=== PATIENT | female | born 1945 | race African-American/Black ===

== ENCOUNTER → 2017-07-13 10:28 | Outpatient (CLI) | payer MEDICARE, BC ==
[2011-09-20 07:08] VITALS: BMI 39.5
[2017-07-13 11:32] LABS: BASOPHILS 0.5 % (0-2); HEMATOCRIT 33.7 % (36.0-48.0); HEMOGLOBIN 10.3 g/dL (12-16); LYMPHOCYTES 38.6 % (15-50); MCH 28.2 pg (26.0-34.0); MCHC 30.6 g/dL (31.0-37.0); MCV 92.3 fL (80.0-100.0); MEAN PLATELET VOLUME 9.7 fL (7.4-10.4); MONOCYTES 9.2 % (2-11); NEUTROPHILS 48.7 % (40-80); PLATELET COUNT 236 10x3/uL (130-400); RBC 3.65 10x6/uL (4.00-5.40); RDW 15.5 % (11.5-14.5); WBC 4.4 10x3/uL (4.8-10.8)
[2017-07-13 12:06] LABS: ALBUMIN 3.3 g/dL (3.4-5.0); ALKALINE PHOSPHATASE 73 U/L (46-116); ALT (SGPT) 25 U/L (10-68); BILIRUBIN - TOTAL 0.36 mg/dL (0.2-1.3); CALC OSMOLALITY 278 mosm/kg (275-300); CALCIUM 9.1 mg/dL (8.5-10.1); CHLORIDE - SERUM 106 mmol/L (98-107); CREATININE - SERUM 0.6 mg/dL (0.6-1.3); GLUCOSE 78 mg/dL (74-106); PROTEIN - SERUM 6.7 g/dL (6.4-8.2); SODIUM 140 mmol/L (136-145); UREA NITROGEN 16 mg/dL (7-18); eGFR NON AFRICAN AMERICAN > 90 mL/min (90-120)
== END | disposition home or self-care (01) ==
LOC: D.LAB 10:28
PROVIDERS: Internal Medicine Gastroenterology
DX: K52.9 Noninfective gastroenteritis and colitis, unspecified (principal)

== ENCOUNTER → 2017-08-16 10:57 | Outpatient (CLI) | payer MEDICARE, BC ==
[2011-09-20 07:08] VITALS: BMI 39.5
[2017-08-16 11:33] LABS: BASOPHILS 0.4 % (0-2); HEMATOCRIT 33.2 % (36.0-48.0); HEMOGLOBIN 10.4 g/dL (12-16); IMMATURE GRANULOCYTES 0.4 % (0-5); LYMPHOCYTES 26.9 % (15-50); MCH 29.6 pg (26.0-34.0); MCHC 31.3 g/dL (31.0-37.0); MCV 94.6 fL (80.0-100.0); MEAN PLATELET VOLUME 9.3 fL (7.4-10.4); MONOCYTES 13.5 % (2-11); NEUTROPHILS 53.8 % (40-80); PLATELET COUNT 255 10x3/uL (130-400); RBC 3.51 10x6/uL (4.00-5.40); RDW 15.2 % (11.5-14.5); WBC 4.8 10x3/uL (4.8-10.8)
[2017-08-16 12:42] LABS: ERYTHROCYTE SEDIMENTATION RATE 31 mm/hr (0-30)
== END | disposition home or self-care (01) ==
LOC: D.LAB 10:00
PROVIDERS: Internal Medicine Gastroenterology
DX: K62.5 Hemorrhage of anus and rectum (principal)

== ENCOUNTER 2018-07-21 04:44 | Inpatient (IN) | payer MEDICARE, BC ==
[~2018-07-21] VITALS: Ht 162.6 cm; Wt 116.8 kg
[2018-07-21] MEDS ORDERED: BAYER CHEWABLE81 MG PO (04:50)
[2018-07-21] MEDS ORDERED: PRAVACHOL40 MG PO (04:51)
[2018-07-21] MEDS ORDERED: METHOTREXATE2.5 MG (04:51)
[2018-07-21] MEDS ORDERED: AZULFIDINE500 MG PO (04:51)
[2018-07-21] MEDS ORDERED: ZIAC 10-6.25 MG1 TAB PO (04:51)
[2018-07-21] MEDS ORDERED: ZOFRAN4 MG PO (04:52)
[2018-07-21] MEDS ORDERED: FLAGYL500 MG PO (04:52)
[2018-07-21 07:23] LABS: ALBUMIN 3.2 g/dL (3.4-5.0); ANION GAP 10.5 mmol/L (8-16); BILIRUBIN - TOTAL 0.35 mg/dL (0.2-1.3); CALCIUM 8.4 mg/dL (8.5-10.1); CREATININE - SERUM 0.9 mg/dL (0.6-1.3); POTASSIUM - SERUM 3.5 mmol/L (3.5-5.1); PROTEIN - SERUM 6.8 g/dL (6.4-8.2)
[2018-07-21 07:40] LABS: BASOPHILS 0.1 % (0-2); EOSINOPHILS 0.6 % (0-7); HEMATOCRIT 35.9 % (36.0-48.0); HEMOGLOBIN 11.5 g/dL (12-16); IMMATURE GRANULOCYTES 0.1 % (0-5); LYMPHOCYTES 9.3 % (15-50); MCH 29.3 pg (26.0-34.0); MCV 91.3 fL (80.0-100.0); MEAN PLATELET VOLUME 9.8 fL (7.4-10.4); MONOCYTES 13.1 % (2-11); NEUTROPHILS 76.8 % (40-80); PLATELET COUNT 244 10x3/uL (130-400); RBC 3.93 10x6/uL (4.00-5.40); RDW 14.2 % (11.5-14.5); WBC 6.9 10x3/uL (4.8-10.8)
[2018-07-21 10:41] VITALS: BP 117/59
[2018-07-21 11:37] VITALS: BP 126/60
--- NOTE | 2018-07-21 11:54 | NUR ---
RECIEVED PT FROM ER. PT IS AWAKE AND ORIENTED X 4 VERY PLESANT UP AD XIN
[2018-07-21 15:05] VITALS: BMI 45.0
[2018-07-21 15:22] LABS: % SATURATION 8 % (15-55); IRON 21 ug/dl (35-150); TOTAL IRON BIND CAPACITY 240 ug/dl (260-445); UNSAT IRON BIND CAPACITY 219 ug/dl (150-375)
[2018-07-21 15:56] VITALS: BP 136/63
--- NOTE | 2018-07-21 16:12 | NUR ---
ASSESSMENT COMPLETE PT AAOX4 RRESP UNLABOREDSKIN W/D PT DENIES ANY NAUSEA OR DISCOMFORT AT THIS TIME WILL CONTINUE TO MONITOR
--- NOTE | 2018-07-21 18:47 | NUR ---
PT C/O BEING COLD, GIVEN EXTRA BLANKET. NO FEVER AT THIS TIME. CL IN REACH, SRX2. NO OTHER COMPLAINTS/CONCERNS AT THIS ITME.
--- NOTE | 2018-07-21 19:28 | NUR ---
PT HAS BEEN PLACED IN ISOLATION CONTACT AT THIS TIME. AWAKE AND ALERT AND DENIES NEEDS AT THIS TIME FRESH WATER RECIEVED BED IS LOW AND LOCKED AND CALL LIGHT IS IN REACH. IV PATENT AT 100CC/HR
[2018-07-21 20:00] VITALS: BP 138/48
[2018-07-22] VITALS (7 sets, daily range): BP systolic 114–152; BP diastolic 48–74; Ht 162.6 cm; Wt 116.8 kg
--- NOTE | 2018-07-22 03:30 | NUR ---
I have reviewed this patient and I concur with the Shift Assessment completed by the Licensed Practical Nurse today this shift.
[2018-07-22 04:55] LABS: BASOPHILS 0.2 % (0-2); EOSINOPHILS 3.8 % (0-7); HEMATOCRIT 33.2 % (36.0-48.0); HEMOGLOBIN 10.2 g/dL (12-16); IMMATURE GRANULOCYTES 0.4 % (0-5); LYMPHOCYTES 13.1 % (15-50); MCH 28.6 pg (26.0-34.0); MCHC 30.7 g/dL (31.0-37.0); MEAN PLATELET VOLUME 9.2 fL (7.4-10.4); MONOCYTES 17.7 % (2-11); NEUTROPHILS 64.8 % (40-80); PLATELET COUNT 207 10x3/uL (130-400); RBC 3.57 10x6/uL (4.00-5.40); RDW 14.6 % (11.5-14.5)
[2018-07-22 05:38] LABS: ANION GAP 14.7 mmol/L (8-16); CARBON DIOXIDE 22.6 mmol/L (21.0-32.0); CREATININE - SERUM 0.8 mg/dL (0.6-1.3); MAGNESIUM - SERUM 1.7 mg/dL (1.8-2.4); PHOSPHOROUS 2.2 mg/dL (2.5-4.9); POTASSIUM - SERUM 3.3 mmol/L (3.5-5.1); T4 THYROXIN - FREE 1.15 ng/dL (0.76-1.46); THYROID STIMULATING HORMONE 0.71 uIU/mL (0.36-3.74)
--- NOTE | 2018-07-22 05:58 | NUR ---
PHIOS 2.2 PHOS-NAK GIVEN PO
[2018-07-22 06:33] LABS: APPEARANCE CLEAR (CLEAR); BILIRUBIN NEGATIVE (NEGATIVE); COLOR YELLOW (YELLOW); GLUCOSE NEGATIVE (NEGATIVE); KETONE LARGE mg/dL (NEGATIVE); NITRITE NEGATIVE (NEGATIVE); PROTEIN TRACE mg/dL (NEGATIVE); UROBILINOGEN NORMAL (NORMAL)
[2018-07-22 06:34] LABS: BACTERIA MODERATE /hpf (NONE SEEN); MUCUS >1+ /lpf (NONE SEEN); WHITE CELLS - URINE OCC /hpf (0-5)
--- NOTE | 2018-07-22 07:20 | NUR ---
REPORT RECIEVED AND MORNING ROUNDING COMPLETE. PT LAYING IN BED AWAKE, PT HAS A LEFT HAND PIV, RUNNING NS @ 100ML/HR. PT IS ON ISOLATION FOR C-DIFF. PT HAS NO COMPLAINT OF N/V AT THIS TIME. PT ASKED ABOUT HOME MEDICATIONS, WILL FOLLOW UP WITH THAT. PT A&OX4 PT STATES NO NEEDS AT THIS TIME CALL LIGHT WITHIN REACH. BED IN LOWEST POSITION.
--- NOTE | 2018-07-22 13:40 | NUR ---
I have reviewed this patient and I concur with the Shift Assessment completed by the Licensed Practical Nurse today this shift.
--- NOTE | 2018-07-22 19:26 | NUR ---
PT IN BED. DENIES NEEDS AT THIS TIME.
--- NOTE | 2018-07-23 02:02 | NUR ---
I have reviewed this patient and I concur with the Shift Assessment completed by the Licensed Practical Nurse today this shift.
[2018-07-23 03:55] VITALS: BP 170/80
[2018-07-23 04:51] LABS: BASOPHILS 0.2 % (0-2); EOSINOPHILS 5.9 % (0-7); HEMATOCRIT 32.1 % (36.0-48.0); HEMOGLOBIN 10.1 g/dL (12-16); IMMATURE GRANULOCYTES 0.5 % (0-5); LYMPHOCYTES 20.3 % (15-50); MCH 29.1 pg (26.0-34.0); MCHC 31.5 g/dL (31.0-37.0); MCV 92.5 fL (80.0-100.0); MEAN PLATELET VOLUME 9.5 fL (7.4-10.4); MONOCYTES 14.6 % (2-11); NEUTROPHILS 58.5 % (40-80); PLATELET COUNT 215 10x3/uL (130-400); RBC 3.47 10x6/uL (4.00-5.40); RDW 14.6 % (11.5-14.5); WBC 4.4 10x3/uL (4.8-10.8)
[2018-07-23 05:03] LABS: CALC OSMOLALITY 279 mosm/kg (275-300); CARBON DIOXIDE 21.6 mmol/L (21.0-32.0); CHLORIDE - SERUM 110 mmol/L (98-107); CREATININE - SERUM 0.7 mg/dL (0.6-1.3); GLUCOSE 78 mg/dL (74-106); MAGNESIUM - SERUM 2.1 mg/dL (1.8-2.4); PHOSPHOROUS 2.1 mg/dL (2.5-4.9); POTASSIUM - SERUM 3.6 mmol/L (3.5-5.1); SODIUM 142 mmol/L (136-145); UREA NITROGEN 6 mg/dL (7-18); eGFR NON AFRICAN AMERICAN 87 mL/min (90-120)
--- NOTE | 2018-07-23 07:33 | NUR ---
PT AWAKE AND ORIENTED, ON PHONE WITH FRIENDS/FAMILY. NO COMPLAINTS OR CONCERNS VOICED AT THIS TIME. CL IN REACH, SRX2.
[2018-07-23 08:10] VITALS: BP 140/76
--- NOTE | 2018-07-23 12:49 | NUR ---
I have reviewed this patient and I concur with the Shift Assessment completed by the Licensed Practical Nurse today this shift.
[2018-07-23 16:20] VITALS: BP 136/77
--- NOTE | 2018-07-23 20:00 | NUR ---
ROUNDS COMPLETED. VSS, AAOX3. NO S/S OF RR DISTRESS. PT LAYING IN BED WITH EYES OPEN. STATES SHE HAS HAD 6 EPISODES OF DIARRHEA TODAY. PT ON CONTACT PRECAUTION. DENIES ANY FURTHER NEEDS AT THIS TIME. WILL CPOC.
[2018-07-23 20:37] VITALS: BP 126/59
[2018-07-24 00:18] VITALS: BP 128/59
--- NOTE | 2018-07-24 03:15 | NUR ---
PT STATES SHE ACCIDENTALLY PULL OUT HER PIV WHILE SHE WAS SLEEPING. ASSESSED THE SITE, NO S/S OF BLEEDING NOTED. APPLIED 2X2 GAUZE AND TAPED. RESITED A NEW PIV ON L.WRIST 22G X1 STICK. PT TOLERATE WELL. PT CURRENTLY LAYING IN BED. DENIES ANY FURTHER NEEDS AT THIS TIME. WILL CPOC. CL IN REACH, BED IN LOW.
[2018-07-24 06:11] VITALS: BP 140/79
[2018-07-24 07:23] LABS: CALC OSMOLALITY 275 mosm/kg (275-300); CALCIUM 8.5 mg/dL (8.5-10.1); CARBON DIOXIDE 22.7 mmol/L (21.0-32.0); CHLORIDE - SERUM 107 mmol/L (98-107); CREATININE - SERUM 0.7 mg/dL (0.6-1.3); GLUCOSE 94 mg/dL (74-106); POTASSIUM - SERUM 3.5 mmol/L (3.5-5.1); SODIUM 140 mmol/L (136-145); eGFR NON AFRICAN AMERICAN 87 mL/min (90-120)
[2018-07-24 07:24] LABS: UREA NITROGEN 4 mg/dL (7-18)
[2018-07-24 07:28] LABS: HEMATOCRIT 36.6 % (36.0-48.0); HEMOGLOBIN 11.6 g/dL (12-16); MCHC 31.7 g/dL (31.0-37.0); MCV 91.5 fL (80.0-100.0); MEAN PLATELET VOLUME 9.6 fL (7.4-10.4); PLATELET COUNT 254 10x3/uL (130-400); RDW 14.4 % (11.5-14.5)
[2018-07-24 07:35] LABS: WBC 6.2 10x3/uL (4.8-10.8)
--- NOTE | 2018-07-24 07:50 | NUR ---
PATIENT IS SITTING UP IN BED. SHE REPORTS FRUSTRATION THAT HER TRAY WAS NOT REMOVED FROM HER ROOM IN A TIMELY MANNER LAST NIGHT. SHE STATES THAT SHE IS PAYING FOR HER STAY AND IS FRUSTRATED THAT SHE WASNT ABLE TO HAVE A SHOWER BECAUSE THERE WERE NO TOWELS LAST NIGHT. SPOKE TO MECHANICAL ASSEMBLY TECHNICIAN AND SAID THAT I WILL DO EVERYTHING IN MY POWER TO KEEP HER COMFORTABLE. WE WILL REMOVE THE TRAYS IN A TIMELY MANNER. SHE IS SITTING UP IN BED. BROUGHT HER A FRESH ICE WATER. HER ROOM IS CLEAN AND SHE HAS A CLEAN GOWN AND WASHED UP AT THE SINK AND REPORTS THAT SHE DOES NOT WANT A SHOWER NOW, ALTHOUGH SHE HAS TOWELS AND EVERYTHING SHE NEEDS READY FOR HER WHEN SHE IS READY.
[2018-07-24 08:46] LABS: EOSINOPHILS 3 % (0-7); LYMPHOCYTES 25 % (15-50); MONOCYTES 7 % (2-11); NEUTROPHILS 63 % (40-80); PLATELET ESTIMATE NORMAL
[2018-07-24 08:47] VITALS: BP 176/78
[2018-07-24 08:47] LABS: ROULEAUX OCC
--- NOTE | 2018-07-24 10:48 | MORECARE ---
CASE MANAGEMENT DISCHARGE SUMMARY PATIENT: ROSA HOLLY UNIT: [id number] ADM DATE: 07/21/18 AGE: 73 : 44 SEX: F ROOM/BED: D.2106 AUTHOR: WIL BLOOM PHYSICIAN: REFERRING PHYSICIAN: MARIA E CASTILLO MD DATE OF SERVICE: 07/24/18 Discharge Plan Patient Name: ROSA HOLLY Facility: [facility]:[place] : 1945 Planned Disposition: Home Anticipated Discharge Date: 07/25/18 Discharge Date: Expected LOS: 4 Initial Reviewer: [email or web address] Initial Review Date: 07/24/2018 Generated: 07/24/18 11:48 am Coverage Notice Reviewer: [id number] - Naeem Reddy Notice Issued Date-Time: 07/24/2018 9:55 Notice Type: IM Discharge Notice Notice Delivered To: Patient Relationship to Patient: Financial Sales Assistant Name: Delivery Method: HAND - Hand Delivered [place] Days: Prior Verbal Notification: Recipient Understood Notice: Yes Recipient Signature: Yes Med Rec Note Co-signed by Attending: Coverage Notice Comment: Patient Name: ROSA HOLLY Page [phone] at 1048 All edits/amendments must be made on the electronic document DICTATION DATE: 07/24/181047 APPLICATIONS TESTER: ABHILASH 07/24/18 1048 RPT#: [id number] DC DATE: STATUS: ADM IN [facility] [address] [place] [address] END OF REPORT
--- NOTE | 2018-07-24 11:05 | MORECARE ---
CASE MANAGEMENT DISCHARGE SUMMARY PATIENT: ROSA HOLLY UNIT: [id number] ADM DATE: 07/21/18 AGE: 73 : 44 SEX: F ROOM/BED: D.2106 AUTHOR: WIL BLOOM PHYSICIAN: REFERRING PHYSICIAN: MARIA E CASTILLO MD DATE OF SERVICE: 07/24/18 Discharge Plan Patient Name: ROSA HOLLY Facility: [facility]:[place] : 1945 Planned Disposition: Home Anticipated Discharge Date: 07/25/18 Discharge Date: Expected LOS: 4 Initial Reviewer: [id number] Initial Review Date: 07/24/2018 Generated: 07/24/18 12:05 pm DCPIA - Discharge Planning Initial Assessment Updated by [email or web address]: Naeem Reddy on 07/24/18 10:57 am * Is the patient Alert and Oriented? Yes * How many steps to enter\exit or inside your home? 0-O / 2-I * PCP DR. REIS * Pharmacy [facility] OR [facility] IN [place] * Preadmission Environment Home with Family * ADLs Independent * Equipment Bedside Commode Walker * Other Equipment NO MEDICAL EQUIPMENT PROVIDER PATIENT IS NOT CURRENTLY USING ANY MEDICAL EQUIPMENT AT HOME * List name and contact numbers for known caregivers / representatives who currently or will assist patient after discharge: TRAN HOLLY, SPOUSE, * Verbal permission to speak to the caregivers and representatives has been obtained from the patient. N/A * Community resources currently utilized None * Please name any agencies selected above. NONE * Additional services required to return to the preadmission environment? No * Can the patient safely return to the preadmission environment? Yes * Has this patient been hospitalized within the prior 30 days at any hospital? No Coverage Notice Reviewer: [id number] - Naeem Reddy Notice Issued Date-Time: 07/24/2018 9:55 Notice Type: IM Discharge Notice Notice Delivered To: Patient Relationship to Patient: Clubhouse Attendant Name: Delivery Method: HAND - Hand Delivered Carolina Days: Prior Verbal Notification: Recipient Understood Notice: Yes Recipient Signature: Yes Med Rec Note Co-signed by Attending: Coverage Notice Comment: Last DP export: 07/24/18 9:48 a Patient Name: ORSA HOLLY Page [phone] at 1105 All edits/amendments must be made on the electronic document DICTATION DATE: 07/24/181104 DIGITAL PERFORMANCE ANALYST: ABHILASH 07/24/181104 RPT#: [id number] DC DATE: STATUS: ADM IN [facility] [address] [place] [address] END OF REPORT
--- NOTE | 2018-07-24 11:15 | MORECARE ---
CASE MANAGEMENT DISCHARGE SUMMARY PATIENT: ROSA HOLLY UNIT: [id number] ADM DATE: 07/21/18 AGE: 73 : 43 SEX: F ROOM/BED: D.2106 AUTHOR: MERLE,DOC PHYSICIAN: REFERRING PHYSICIAN: MARIA E CASTILLO MD DATE OF SERVICE: 07/24/18 Discharge Plan Patient Name: ROSA HOLLY Facility: [facility]:[place] : 1945 Planned Disposition: Home Anticipated Discharge Date: 07/25/18 Discharge Date: Expected LOS: 4 Initial Reviewer: [email or web address] Initial Review Date: 07/24/2018 Generated: 07/24/18 12:15 pm Comments DCP- Discharge Planning Updated by [email or web address]: Naeem Reddy on 07/24/18 10:[address] Patient Name: ROSA HOLLY Admission Status: ER Accout number: [id number] Admission Date: 07-21-2018 : 1945 Admission Diagnosis: Attending: MARIA E CASTILLO Current LOS: 3 Anticipated DC Date: 07-25-2018 Planned Disposition: Home Primary Insurance: MEDICARE A & B Discharge Planning Comments: CM MET WITH PT IN ROOM TO DISCUSS DISCHARGE PLANNING AND NEEDS. PT REPORTS LIVING AT HOME INDEPENDENTLY WITH HER SPOUSE. PT HAS BEDSIDE COMMODE AND WALKER THAT SHE IS NOT USING. PT HAS NO MEDICAL EQUIPMENT PROVIDER PREFERENCE. PT HAS NO OUTSIDE SERVICES ASSISTING IN THE HOME. CM DISCUSSED AVAILABILITY OF HOME HEALTH, REHAB SERVICES AND MEDICAL EQUIPMENT. PT DENIES DISCHARGE NEEDS, REPORTS HER SPOUSE WILL PICK HER UP FOR DISCHARGE HOME. IMPORTANT MESSAGE FROM MEDICARE PROVIDED AND EXPLAINED. Water Pipe Installer: Naeem Reddy DCPIA - Discharge Planning Initial Assessment Updated by [email or web address]: Naeem Reddy on 07/24/18 10:57 am * Is the patient Alert and Oriented? Yes * How many steps to enter\exit or inside your home? 0-O / 2-I * PCP DR. REIS * Pharmacy [facility] OR [facility] IN [place] * Preadmission Environment Home with Family * ADLs Independent * Equipment Bedside Commode Walker * Other Equipment NO MEDICAL EQUIPMENT PROVIDER PATIENT IS NOT CURRENTLY USING ANY MEDICAL EQUIPMENT AT HOME * List name and contact numbers for known caregivers / representatives who currently or will assist patient after discharge: TRAN HOLLY, SPOUSE, * Verbal permission to speak to the caregivers and representatives has been obtained from the patient. N/A * Community resources currently utilized None * Please name any agencies selected above. NONE * Additional services required to return to the preadmission environment? No * Can the patient safely return to the preadmission environment? Yes * Has this patient been hospitalized within the prior 30 days at any hospital? No Coverage Notice Reviewer: [id number] [place] Reddy Notice Issued Date-Time: 07/24/2018 9:55 Notice Type: IM Discharge Notice Notice Delivered To: Patient Relationship to Patient: Video Production Intern Name: Delivery Method: HAND - Hand Delivered Carolina Days: Prior Verbal Notification: Recipient Understood Notice: Yes Recipient Signature: Yes Med Rec Note Co-signed by Attending: Coverage Notice Comment: Last DP export: 07/24/18 10:05 a Patient Name: ROSA HOLLY Page [phone] at 1115 All edits/amendments must be made on the electronic document DICTATION DATE: 07/24/181113 ACOUSTICAL TILE CARPENTERS SUPERVISOR: ABHILASH 07/24/18 111 RPT#: [id number] DC DATE: STATUS: ADM IN [facility] [address] [place] [address] END OF REPORT
--- NOTE | 2018-07-24 12:40 | NUR ---
I have reviewed this patient and I concur with the Shift Assessment completed by the Licensed Practical Nurse today this shift.
[2018-07-24 13:02] VITALS: BP 175/91
[2018-07-24 15:50] VITALS: BP 140/82
--- NOTE | 2018-07-24 18:38 | NUR ---
PATIENT IS RESTING QUIETLY AT THIS TIME. SHE DENIES ANY NEEDS AT THIS TIME.
[2018-07-24 20:00] VITALS: BP 147/78
--- NOTE | 2018-07-24 20:08 | NUR ---
ROUNDS COMPLETED. VSS, AAOX3, NO S/S OF RESP DISTRESS. @ BEDSIDE. PT DENIES ANY NEEDS AT THIS TIME. WILL CPOC.
[2018-07-25 04:00] VITALS: BP 133/77
[2018-07-25 04:08] LABS: FOLATE (FOLIC ACID) - SERUM 15.4 ng/mL (>3.0)
[2018-07-25 06:05] LABS: BASOPHILS 0.3 % (0-2); EOSINOPHILS 2.5 % (0-7); HEMATOCRIT 36.4 % (36.0-48.0); HEMOGLOBIN 11.5 g/dL (12-16); IMMATURE GRANULOCYTES 0.8 % (0-5); MCH 28.8 pg (26.0-34.0); MCHC 31.6 g/dL (31.0-37.0); MCV 91.2 fL (80.0-100.0); MEAN PLATELET VOLUME 9.8 fL (7.4-10.4); MONOCYTES 14.5 % (2-11); NEUTROPHILS 56.9 % (40-80); PLATELET COUNT 263 10x3/uL (130-400); RBC 3.99 10x6/uL (4.00-5.40); RDW 14.5 % (11.5-14.5)
[2018-07-25 06:23] LABS: CALC OSMOLALITY 275 mosm/kg (275-300); CALCIUM 8.7 mg/dL (8.5-10.1); CARBON DIOXIDE 25.2 mmol/L (21.0-32.0); CHLORIDE - SERUM 105 mmol/L (98-107); CREATININE - SERUM 0.7 mg/dL (0.6-1.3); GLUCOSE 95 mg/dL (74-106); POTASSIUM - SERUM 3.2 mmol/L (3.5-5.1); SODIUM 140 mmol/L (136-145); UREA NITROGEN 4 mg/dL (7-18); eGFR NON AFRICAN AMERICAN 87 mL/min (90-120)
--- NOTE | 2018-07-25 07:44 | NUR ---
REPORT RECEIVED. WILL CONTINUE WITH POC. PT CURRENTLY LYING SEMI FOWLERS. CALL LIGHT W/I REACH. PT IS RESTING AT THE MOMENT. RR EVEN AND UNLABORED ON RA. NS INFUSING @100ML/HR VIA R.WRIST PIV. PT DENIES ANY NEEDS AT THIS TIME. NO S/S OF DISTRESS NOTED. WILL CTM.
[2018-07-25 08:35] VITALS: BP 170/79
--- NOTE | 2018-07-25 11:02 | NUR ---
PREVIOUS PIV INFILTRATED. REMOVED PIV WITH CATHETER TIP FULLY INTACT. INITIATED NEW PIV TO THE LEFT HAND 22 GA X1 ATTEMPT. PT TOLERATED WELL. FLUSHED WITH 10CC NS TO CONFIRM PATENCY. PIV IS NOW SALINE LOCKED. WILL CTM.
[2018-07-25 11:33] VITALS: BP 127/66
[2018-07-25] MEDS ORDERED: VANCOCIN HCL250 MG PO (13:32)
--- NOTE | 2018-07-25 14:32 | NUR ---
I CALLED THE OFFICE AND SPOKE TO DR LOVE AND PATIENT DOES NEED TO CONTINUE SULFASALAZINE.
--- NOTE | 2018-07-25 15:30 | NUR ---
PT DISCHARGED HOME VIA WHEELCHAIR WITH FAMILY. TELEMETRY REMOVED AND RETURNED. PIV REMOVED WITH CATHETER TIP FULLY INTACT. PT SIGNED PROPER DISCHARGE INSTRUCTION AND REMOVED ALL VALUABLES FROM THE ROOM.
[2018-07-26 07:23] LABS: SPE - A/G RATIO 1.1 (0.7-1.7); SPE - ALBUMIN 3.3 g/dL (2.9-4.4); SPE - ALPHA-1 GLOBULIN 0.4 g/dL (0.0-0.4); SPE - ALPHA-2 GLOBULIN 0.8 g/dL (0.4-1.0); SPE - BETA GLOBULIN 0.9 g/dL (0.7-1.3); SPE - M-SPIKE Not Observed g/dL (Not Observed); SPE - TOTAL PROTEIN 6.4 g/dL (6.0-8.5)
--- NOTE | 2018-07-26 08:32 | MORECARE ---
CASE MANAGEMENT DISCHARGE SUMMARY PATIENT: ROSA HOLLY UNIT: [id number] ADM DATE: 07/21/18 AGE: 73 : 43 SEX: F ROOM/BED: D.2106 AUTHOR: MERLE,DOC PHYSICIAN: REFERRING PHYSICIAN: MARIA E CASTILLO MD DATE OF SERVICE: 07/26/18 Discharge Plan Patient Name: ROSA HOLLY Facility: [facility]:[place] : 1945 Planned Disposition: Home Anticipated Discharge Date: 07/25/18 Discharge Date: 07/25/2018 Expected LOS: 4 Initial Reviewer: [id number] Initial Review Date: 07/24/2018 Generated: 07/26/18 9:31 am DCP- Discharge Planning Updated by [email or web address]: Naeem Reddy on 07/24/18 10:[address] Patient Name: ROSA HOLLY Admission Status: ER Accout number: [id number] Admission Date: 07-21-2018 : 1945 Admission Diagnosis: Attending: MARIA E CASTILLO Current LOS: 3 Anticipated DC Date: 07-25-2018 Planned Disposition: Home Primary Insurance: MEDICARE A & B Discharge Planning Comments: CM MET WITH PT IN ROOM TO DISCUSS DISCHARGE PLANNING AND NEEDS. PT REPORTS LIVING AT HOME INDEPENDENTLY WITH HER SPOUSE. PT HAS BEDSIDE COMMODE AND WALKER THAT SHE IS NOT USING. PT HAS NO MEDICAL EQUIPMENT PROVIDER PREFERENCE. PT HAS NO OUTSIDE SERVICES ASSISTING IN THE HOME. CM DISCUSSED AVAILABILITY OF HOME HEALTH, REHAB SERVICES AND MEDICAL EQUIPMENT. PT DENIES DISCHARGE NEEDS, REPORTS HER SPOUSE WILL PICK HER UP FOR DISCHARGE HOME. IMPORTANT MESSAGE FROM MEDICARE PROVIDED AND EXPLAINED. Garden Center Manager: Naeem Reddy DCPIA - Discharge Planning Initial Assessment Updated by [id number]: Naeem Reddy on 07/24/18 10:57 am * Is the patient Alert and Oriented? Yes * How many steps to enter\exit or inside your home? 0-O / 2-I * PCP DR. REIS * Pharmacy [facility] OR [facility] IN [place] * Preadmission Environment Home with Family * ADLs Independent * Equipment Bedside Commode Walker * Other Equipment NO MEDICAL EQUIPMENT PROVIDER PATIENT IS NOT CURRENTLY USING ANY MEDICAL EQUIPMENT AT HOME * List name and contact numbers for known caregivers / representatives who currently or will assist patient after discharge: TRAN HOLLY, SPOUSE, * Verbal permission to speak to the caregivers and representatives has been obtained from the patient. N/A * Community resources currently utilized None * Please name any agencies selected above. NONE * Additional services required to return to the preadmission environment? No * Can the patient safely return to the preadmission environment? Yes * Has this patient been hospitalized within the prior 30 days at any hospital? No Coverage Notice Reviewer: [id number] [place] Reddy Notice Issued Date-Time: 07/24/2018 9:55 Notice Type: IM Discharge Notice Notice Delivered To: Patient Relationship to Patient: Site Safety Manager Name: Delivery Method: HAND - Hand Delivered [place] Days: Prior Verbal Notification: Recipient Understood Notice: Yes Recipient Signature: Yes Med Rec Note Co-signed by Attending: Coverage Notice Comment: Last DP export: 07/24/18 10:15 a Patient Name: ROSA HOLLY Page [phone] at 0832 All edits/amendments must be made on the electronic document DICTATION DATE: 07/26/18830 TOUCH UP CARVER: ABHILASH 07/26/18830 RPT#: [id number] DC DATE:07/25/18 STATUS: DIS IN [facility] [address] [place] [address] END OF REPORT
[2018-07-31 15:10] LABS: HGB - INTERPRETATION Note: (()); HGB - SOLUBILITY Negative (Negative)
== END 2018-07-25 15:31 | disposition home or self-care (01) | DRG 373 ==
LOC: D.ER 04:44 → D.EDHOLD 10:08 → D.M2 10:08
PROVIDERS: Emergency Medicine; Family Medicine; Internal Medicine Gastroenterology; ADMIT Internal Medicine Nephrology; ATTEND Internal Medicine Nephrology
DX: A04.72 Enterocolitis due to Clostridium difficile, not specified as recurrent (principal); D50.9 Iron deficiency anemia, unspecified; E78.5 Hyperlipidemia, unspecified; F32.9 Major depressive disorder, single episode, unspecified; F41.9 Anxiety disorder, unspecified; I10 Essential (primary) hypertension

== ENCOUNTER → 2018-08-09 10:15 | Outpatient (CLI) | payer MEDICARE, BC | END | disposition home or self-care (01) | LOC: D.LAB 10:15 | DX: Z87.19 Personal history of other diseases of the digestive system (principal); Z80.0 Family history of malignant neoplasm of digestive organs; B96.89 Other specified bacterial agents as the cause of diseases classified elsewhere ==

== ENCOUNTER → 2018-11-10 09:30 | Outpatient (CLI) | payer MEDICARE, BC ==
[2018-07-22 07:47] VITALS: BMI 45.0
[~2018-11-10 09:30] MED LIST: AZULFIDINE500 MG PO; BAYER CHEWABLE81 MG PO; FLAGYL500 MG PO; METHOTREXATE2.5 MG; PRAVACHOL40 MG PO; VANCOCIN HCL250 MG PO; ZIAC 10-6.25 MG1 TAB PO; ZOFRAN4 MG PO
[2018-11-10 10:02] LABS: BASOPHILS 0.6 % (0-2); EOSINOPHILS 2.5 % (0-7); HEMATOCRIT 36.7 % (36.0-48.0); HEMOGLOBIN 11.9 g/dL (12-16); IMMATURE GRANULOCYTES 0.2 % (0-5); LYMPHOCYTES 27.3 % (15-50); MCH 30.1 pg (26.0-34.0); MCHC 32.4 g/dL (31.0-37.0); MCV 92.9 fL (80.0-100.0); MEAN PLATELET VOLUME 9.7 fL (7.4-10.4); MONOCYTES 9.3 % (2-11); NEUTROPHILS 60.1 % (40-80); PLATELET COUNT 242 10x3/uL (130-400); RBC 3.95 10x6/uL (4.00-5.40); RDW 13.8 % (11.5-14.5); WBC 5.3 10x3/uL (4.8-10.8)
[2018-11-10 10:21] LABS: ALBUMIN 3.7 g/dL (3.4-5.0); ANION GAP 13.6 mmol/L (8-16); BILIRUBIN - TOTAL 0.33 mg/dL (0.2-1.3); CALCIUM 8.8 mg/dL (8.5-10.1); CARBON DIOXIDE 28.3 mmol/L (21.0-32.0); POTASSIUM - SERUM 3.9 mmol/L (3.5-5.1); PROTEIN - SERUM 7.2 g/dL (6.4-8.2)
== END | disposition home or self-care (01) ==
LOC: D.LAB 09:30
PROVIDERS: ATTEND Internal Medicine Gastroenterology
DX: K51.90 Ulcerative colitis, unspecified, without complications (principal); Z79.899 Other long term (current) drug therapy

== ENCOUNTER → 2019-02-12 09:32 | Outpatient (CLI) | payer MEDICARE, BC ==
[2018-07-22 07:47] VITALS: BMI 45.0
[2019-02-12 10:27] LABS: ALBUMIN 3.4 g/dL (3.4-5.0); ANION GAP 11.4 mmol/L (8-16); BILIRUBIN - TOTAL 0.26 mg/dL (0.2-1.3); CALCIUM 8.8 mg/dL (8.5-10.1); CARBON DIOXIDE 26.6 mmol/L (21.0-32.0); CREATININE - SERUM 0.8 mg/dL (0.6-1.3)
[2019-02-12 11:35] LABS: BASOPHILS 0.2 % (0-2); EOSINOPHILS 2.9 % (0-7); HEMATOCRIT 36.4 % (36.0-48.0); HEMOGLOBIN 11.1 g/dL (12-16); IMMATURE GRANULOCYTES 0.2 % (0-5); LYMPHOCYTES 31.8 % (15-50); MCH 29.8 pg (26.0-34.0); MCHC 30.5 g/dL (31.0-37.0); MCV 97.8 fL (80.0-100.0); MONOCYTES 9.2 % (2-11); NEUTROPHILS 55.7 % (40-80); PLATELET COUNT 250 10x3/uL (130-400); RBC 3.72 10x6/uL (4.00-5.40); RDW 13.7 % (11.5-14.5); WBC 4.9 10x3/uL (4.8-10.8)
== END | disposition home or self-care (01) ==
LOC: D.LAB 09:32
PROVIDERS: ATTEND Internal Medicine Gastroenterology
DX: Z79.899 Other long term (current) drug therapy (principal); K51.90 Ulcerative colitis, unspecified, without complications

== ENCOUNTER → 2019-05-11 09:41 | Outpatient (CLI) | payer MEDICARE, BC ==
[2018-07-22 07:47] VITALS: BMI 45.0
[2019-05-11 10:27] LABS: BASOPHILS 0.7 % (0-2); EOSINOPHILS 1.7 % (0-7); HEMATOCRIT 38.2 % (36.0-48.0); HEMOGLOBIN 11.7 g/dL (12-16); IMMATURE GRANULOCYTES 0.2 % (0-5); LYMPHOCYTES 32.8 % (15-50); MCH 29.5 pg (26.0-34.0); MCHC 30.6 g/dL (31.0-37.0); MCV 96.2 fL (80.0-100.0); MEAN PLATELET VOLUME 9.8 fL (7.4-10.4); MONOCYTES 10.8 % (2-11); NEUTROPHILS 53.8 % (40-80); PLATELET COUNT 237 10x3/uL (130-400); RBC 3.97 10x6/uL (4.00-5.40); RDW 13.5 % (11.5-14.5); WBC 5.8 10x3/uL (4.8-10.8)
[2019-05-11 11:03] LABS: ALBUMIN 3.8 g/dL (3.4-5.0); ANION GAP 14.6 mmol/L (8-16); BILIRUBIN - TOTAL 0.26 mg/dL (0.2-1.3); CALCIUM 8.6 mg/dL (8.5-10.1); CARBON DIOXIDE 26.8 mmol/L (21.0-32.0); CREATININE - SERUM 0.9 mg/dL (0.6-1.3); POTASSIUM - SERUM 3.4 mmol/L (3.5-5.1); PROTEIN - SERUM 7.9 g/dL (6.4-8.2)
== END | disposition home or self-care (01) ==
LOC: D.LAB 09:41
PROVIDERS: ATTEND Internal Medicine Gastroenterology
DX: Z79.899 Other long term (current) drug therapy (principal); K51.90 Ulcerative colitis, unspecified, without complications

== ENCOUNTER → 2019-08-13 11:41 | Outpatient (CLI) | payer MEDICARE, BC ==
[2018-07-22 07:47] VITALS: BMI 45.0
[2019-08-13 12:18] LABS: BASOPHILS 0.5 % (0-2); EOSINOPHILS 3.2 % (0-7); HEMATOCRIT 36.6 % (36.0-48.0); HEMOGLOBIN 11.2 g/dL (12-16); LYMPHOCYTES 44.7 % (15-50); MCH 29.8 pg (26.0-34.0); MCHC 30.6 g/dL (31.0-37.0); MCV 97.3 fL (80.0-100.0); MEAN PLATELET VOLUME 9.9 fL (7.4-10.4); MONOCYTES 8.6 % (2-11); PLATELET COUNT 206 10x3/uL (130-400); RBC 3.76 10x6/uL (4.00-5.40); WBC 4.3 10x3/uL (4.8-10.8)
[2019-08-13 12:37] LABS: ALBUMIN 3.7 g/dL (3.4-5.0); ANION GAP 13.4 mmol/L (8-16); BILIRUBIN - TOTAL 0.29 mg/dL (0.2-1.3); CALCIUM 8.7 mg/dL (8.5-10.1); CARBON DIOXIDE 26.4 mmol/L (21.0-32.0); CREATININE - SERUM 0.8 mg/dL (0.6-1.3); POTASSIUM - SERUM 3.8 mmol/L (3.5-5.1); PROTEIN - SERUM 6.9 g/dL (6.4-8.2)
== END | disposition home or self-care (01) ==
LOC: D.LABREF 11:41
PROVIDERS: ATTEND Internal Medicine Gastroenterology
DX: Z79.899 Other long term (current) drug therapy (principal); K51.90 Ulcerative colitis, unspecified, without complications

== ENCOUNTER → 2019-11-16 09:39 | Outpatient (CLI) | payer MEDICARE, BC ==
[2018-07-22 07:47] VITALS: BMI 45.0
[2019-11-16 10:30] LABS: BASOPHILS 0.5 % (0-2); LYMPHOCYTES 48.9 % (15-50); MCH 28.9 pg (26.0-34.0); MCHC 30.6 g/dL (31.0-37.0); MCV 94.5 fL (80.0-100.0); MEAN PLATELET VOLUME 9.6 fL (7.4-10.4); MONOCYTES 12.4 % (2-11); NEUTROPHILS 35.2 % (40-80); PLATELET COUNT 233 10x3/uL (130-400); RBC 3.81 10x6/uL (4.00-5.40); RDW 13.3 % (11.5-14.5); WBC 3.7 10x3/uL (4.8-10.8)
[2019-11-16 10:31] LABS: ALBUMIN 3.5 g/dL (3.4-5.0); ANION GAP 13.4 mmol/L (8-16); BILIRUBIN - TOTAL 0.27 mg/dL (0.2-1.3); CALCIUM 8.7 mg/dL (8.5-10.1); CARBON DIOXIDE 26.2 mmol/L (21.0-32.0); POTASSIUM - SERUM 3.6 mmol/L (3.5-5.1); PROTEIN - SERUM 7.1 g/dL (6.4-8.2)
== END | disposition home or self-care (01) ==
LOC: D.LAB 09:39
PROVIDERS: ATTEND Internal Medicine Gastroenterology
DX: Z79.899 Other long term (current) drug therapy (principal); K51.90 Ulcerative colitis, unspecified, without complications

== ENCOUNTER → 2020-06-10 10:20 | Outpatient (CLI) | payer MEDICARE, BC ==
[2018-07-22 07:47] VITALS: BMI 45.0
[2020-06-10 10:58] LABS: BASOPHILS 0.6 % (0-2); EOSINOPHILS 2.1 % (0-7); HEMATOCRIT 35.3 % (36.0-48.0); HEMOGLOBIN 10.8 g/dL (12-16); IMMATURE GRANULOCYTES 0.2 % (0-5); LYMPHOCYTE ABS# 1.96 10x3/uL (1.18-3.74); LYMPHOCYTES 38.1 % (15-50); MCH 29.1 pg (26.0-34.0); MCHC 30.6 g/dL (31.0-37.0); MCV 95.1 fL (80.0-100.0); MEAN PLATELET VOLUME 9.4 fL (7.4-10.4); MONOCYTES 10.7 % (2-11); NEUTROPHIL ABS# 2.49 10x3/uL (1.56-6.13); NEUTROPHILS 48.3 % (40-80); PLATELET COUNT 211 10x3/uL (130-400); RBC 3.71 10x6/uL (4.00-5.40); RDW 13.9 % (11.5-14.5); WBC 5.2 10x3/uL (4.8-10.8)
[2020-06-10 11:03] LABS: ALBUMIN 3.4 g/dL (3.4-5.0); ANION GAP 8.8 mmol/L (8-16); BILIRUBIN - TOTAL 0.24 mg/dL (0.2-1.3); CALCIUM 8.7 mg/dL (8.5-10.1); CARBON DIOXIDE 28.1 mmol/L (21.0-32.0); CREATININE - SERUM 0.9 mg/dL (0.6-1.3); POTASSIUM - SERUM 3.9 mmol/L (3.5-5.1); PROTEIN - SERUM 7.2 g/dL (6.4-8.2)
== END | disposition home or self-care (01) ==
LOC: D.LAB 10:20
PROVIDERS: ATTEND Internal Medicine Gastroenterology
DX: K51.90 Ulcerative colitis, unspecified, without complications (principal)

== ENCOUNTER → 2020-09-08 10:25 | Outpatient (CLI) | payer MEDICARE, BC ==
[2018-07-22 07:47] VITALS: BMI 45.0
[2020-09-08 10:48] LABS: BASOPHILS 0.8 % (0-2); EOSINOPHILS 1.5 % (0-7); HEMATOCRIT 36.2 % (36.0-48.0); HEMOGLOBIN 11.5 g/dL (12-16); MCHC 31.6 g/dL (31.0-37.0); MCV 91.5 fL (80.0-100.0); MEAN PLATELET VOLUME 7.3 fL (7.4-10.4); MONOCYTES 8.2 % (2-11); NEUTROPHILS 61.5 % (40-80); PLATELET COUNT 252 10x3/uL (130-400); RBC 3.96 10x6/uL (4.00-5.40); RDW 14.6 % (11.5-14.5); WBC 5.2 10x3/uL (4.8-10.8)
[2020-09-08 11:01] LABS: ALBUMIN 3.6 g/dL (3.4-5.0); BILIRUBIN - TOTAL 0.32 mg/dL (0.2-1.3); CALCIUM 8.6 mg/dL (8.5-10.1); CARBON DIOXIDE 26.7 mmol/L (21.0-32.0); CREATININE - SERUM 0.9 mg/dL (0.6-1.3); POTASSIUM - SERUM 3.7 mmol/L (3.5-5.1); PROTEIN - SERUM 7.5 g/dL (6.4-8.2)
== END | disposition home or self-care (01) ==
LOC: D.LAB 10:25
PROVIDERS: ATTEND Internal Medicine Gastroenterology
DX: K51.90 Ulcerative colitis, unspecified, without complications (principal)